=== PATIENT | female | born 1980 | race Hispanic/Latino ===

== ENCOUNTER 2018-06-27 17:11 | Day surgery (SDC) | payer MEDICAID, OTHER ==
[2018-06-27 20:03] LABS: Bilirubin Negative (Negative); Blood, Urine Negative (Negative); Clarity CLEAR (Clear); Glucose, Urine (Dipstick) Negative (Negative); Leukocyte Negative (Negative); Nitrite Negative (Negative); Protein, Urine (Dipstick) Negative (Neg-Trace); Specific Gravity, Urine 1.007 (1.002-1.036); Urobilinogen 0.2 mg/dL (0.2-1.0)
[2018-06-27 20:05] LABS: Urine Culture Reflex No No
[2018-06-27 20:06] LABS: Bacteria/HPF None Seen HPF (None Seen); Hyaline Casts/LPF 0-3 HYALINE CAST LPF (0-3 Hyaline); Pathc Cast-AUWi Flag 0.43 (0-2.49); RBC/HPF 0-3 HPF (0-3); Squamous Epithelial 0-3 HPF (0-3); WBC/HPF None Seen HPF (0-3)
--- NOTE | 2018-06-27 20:59 | ULT ---
OBSTETRICAL ULTRASOUND: 06/27/2018 HISTORY: female with vaginal bleeding. TECHNIQUE: Multiplanar aguiar-scale sonographic imaging of the gravid uterus is obtained. FINDINGS: Cervical length is 5.1 cm. The placenta is located posterior and to the right, with no evidence for previa or abruption appreciated. A single intrauterine gestation is present, demonstrating a vertex presentation and a heart rate of 139 beats per minute. Amniotic fluid index is 11.5 cm. anatomy is not assessed on this examination. IMPRESSION: Single intrauterine gestation, as detailed above. No sonographic evidence of placenta previa or abru ption. POS: [facility]
--- NOTE | 2018-06-27 22:39 | PRG ---
DATE OF SERVICE: 06/27/2018 PRIMARY OB: Dr. Servando Rod. CHIEF COMPLAINT: Vaginal bleeding. HISTORY OF PRESENT ILLNESS: The patient is a 37-year-old G4, P3 female, who is presenting with a 1-day history of vaginal bleeding. The patient noticed several times today while going to the bathroom and wiping that she had blood on her toilet paper. The patient reports that she has been wearing a pad, but has noticed very little bleeding onto the pad. The patient denies uterine contractions. She denies any trauma to her abdomen, recent falls, or intercourse. The patient denies any knowledge of abnormal placentation. The patient denies any recent illness, fever, falls, headache, chest pain, shortness of breath, nausea, vomiting, diarrhea, or constipation. She denies any new rashes, hip problems, knee problems, or muscle weakness. The patient reports that once we had our initial exam, she has not been having any more bleeding even upon going to the bathroom. The patient continues to deny any contractions or pain. PAST MEDICAL HISTORY: Negative. PAST SURGICAL HISTORY: Negative. SOCIAL HISTORY: Denies drug, alcohol, or tobacco use. ALLERGIES: NO KNOWN DRUG ALLERGIES. MEDICATIONS: vitamins. OB LABS: Unavailable at time of dictation. REVIEW OF SYSTEMS: Per HPI. PHYSICAL EXAMINATION: VITAL SIGNS: Blood pressure 125/78, heart rate of 85, respiratory rate 18, temperature 98.5. GENERAL: She appears to be in no acute distress. She is alert, oriented, cooperative, pleasant to interact with. HEAD: Normocephalic and atraumatic. LUNGS: Clear to auscultation bilaterally. HEART: Regular rate and rhythm. ABDOMEN: Soft, gravid, and nontender. EXTREMITIES: Nontender and nonedematous. : Her perineum is noted to have some bleeding at the introitus. On speculum exam, the patient was noted to have about 10 to 20 mL of clotted blood in her vaginal vault, which she used about five Greer swabs to remove. Cervix is visibly closed. There does not appear to be any other significant discharge. Cervix is possibly friable, but does not seem to be the source of her bleeding. On digital exam, cervix is closed and thick, though does seem to be tender. Pelvic floor muscles also are tight and tender. heart tracing was performed. The patient was noted to have a baseline in the 140s with moderate long-term variability, positive 15 x 15 accelerations, no decelerations. No contractions seen on the monitor. Urinalysis is negative for ketones, nitrites, leukocyte esterase, blood, and bacteria, which was collected by cath specimen VP3 significant for Darcie, negative for Trichomonas or Gardnerella. Ultrasound; ultrasound demonstrates cervical length of 5 cm. Placenta posterior to the right with no evidence of previa or abruption appreciated and fetus in vertex presentation. RENITA of 11.5. ASSESSMENT AND PLAN: The patient is a 37-year-old G4, P3 female with an intrauterine at 33 weeks with 1-day history of isolated bleeding that seems to have resolved. There is no evidence of abruption on ultrasound or by history as the patient has no abdominal pain or contractions. Fetus has category 1 tracing. On labs, the patient does have evidence of yeast infection. We have encouraged that she used [id number] medications such as Monistat as directed, should replete with later on Wednesday with Dr. Rod, which we have encouraged that she keep. The patient is being discharged to home with labor precautions. Job ID: [id number]
== END 2018-06-27 21:24 | disposition home or self-care (01) ==
LOC: L&D/OP 17:11
PROVIDERS: ATTEND Family Medicine
DX: O46.93 Antepartum hemorrhage, unspecified, third trimester (principal); Z3A.33 33 weeks gestation of pregnancy
CPT/HCPCS: 51701; 76815; 81001; 87480; 87510; 87660; 99285

== ENCOUNTER 2018-07-28 10:10 | Day surgery (SDC) | payer OTHER ==
[2018-07-28 12:05] LABS: #Eosinphils 0.6 thou/uL (0.0-0.7); #Lymphocytes 1.9 thou/uL (1.20-3.40); #Monocytes 0.4 thou/uL (0.11-0.59); #Neutrophils 7.6 thou/uL (1.40-6.50); %Basophils 0.1 % (0.0-1.0); %Eosinophils 5.4 % (0.0-10.0); %Lymphocytes 17.9 % (21.0-51.0); %Monocytes 3.9 % (0.0-10.0); %Neutrophils 72.7 % (42.0-75.0); Hemoglobin 12.4 g/dL (12.0-16.0); Mean Corpuscular HGB CONC 32.4 g/dL (32.0-36.0); Mean Corpuscular Hemoglobin 26.7 pg (27.0-31.0); Mean Corpuscular Volume 82.5 fL (78.0-98.0); Mean Platelet Volume 8.1 fL (7.4-10.4); Platelet Count 335 thou/uL (130-400); Red Blood Cell (RBC) Count 4.62 mill/uL (4.20-5.40); White Blood Cell (WBC) Count 10.4 thou/uL (4.8-10.8)
--- NOTE | 2018-07-28 12:09 | ULT ---
ULTRASOUND BIOPHYSICAL PROFILE: HISTORY: Increased blood pressure. COMPARISON: None. FINDINGS: The biophysical profile score is 8/8. The position is vertex. Amniotic fluid index measures 1 8.2 cm. The placenta is posterior and to the right. Heart rate documented at 135 b.p.m. Clinical age of 37 weeks 3 days. IMPRESSION: Biophysical profile score of 8/8. The results were given to the nurse at the time of the exam by the technologist. CODE STEPHANIE POS: [facility]
[2018-07-28 12:18] LABS: ALT (SGPT) 12 U/L (8-55); AST (SGOT) 17 U/L (5-34); Albumin 3.4 g/dL (3.5-5.0); Alkaline Phosphatase 328 U/L (40-150); Anion Gap 13 mmol/L (10-20); BUN (Urea Nitrogen) 5 mg/dL (7.0-18.7); Bilirubin, Total 0.3 mg/dL (0.2-1.2); Calc. Creatinine Clearance 152 mL/min (70-130); Calcium 9.4 mg/dL (7.8-10.44); Carbon Dioxide 20 mmol/L (22-29); Chloride 108 mmol/L (98-107); Estimated GFR-MDRD Greater than 90; Globulin 3.7 g/dL (2.4-3.5); Glucose 76 mg/dL (70-105); Potassium 3.9 mmol/L (3.5-5.1); Protein, Total 7.1 g/dL (6.0-8.3); Sodium 137 mmol/L (136-145); Uric Acid 4.4 mg/dL (2.6-6.0)
== END 2018-07-28 13:50 | disposition home or self-care (01) ==
LOC: L&D/OP 10:10
PROVIDERS: ATTEND Family Medicine
DX: O13.3 Gestational [pregnancy-induced] hypertension without significant proteinuria, third trimester (principal); Z3A.37 37 weeks gestation of pregnancy; Z79.899 Other long term (current) drug therapy
CPT/HCPCS: 36415; 76819; 80053; 82570; 84156; 84550; 85025; 99284

== ENCOUNTER 2018-08-04 10:17 | Inpatient (IN) | payer MEDICAID, OTHER, SELFPAY ==
[2018-08-04 11:12] VITALS: BMI 35.2
[2018-08-04 11:41] LABS: #Eosinphils 0.2 thou/uL (0.0-0.7); #Lymphocytes 1.6 thou/uL (1.20-3.40); #Monocytes 0.5 thou/uL (0.11-0.59); #Neutrophils 7.7 thou/uL (1.40-6.50); %Basophils 0.2 % (0.0-1.0); %Eosinophils 1.6 % (0.0-10.0); %Lymphocytes 16.2 % (21.0-51.0); Hemoglobin 12.4 g/dL (12.0-16.0); Mean Corpuscular HGB CONC 32.2 g/dL (32.0-36.0); Mean Corpuscular Hemoglobin 25.8 pg (27.0-31.0); Mean Corpuscular Volume 80.1 fL (78.0-98.0); Mean Platelet Volume 8.1 fL (7.4-10.4); Platelet Count 330 thou/uL (130-400); RBC Distribution Width 16.3 % (11.5-14.5); Red Blood Cell (RBC) Count 4.81 mill/uL (4.20-5.40); White Blood Cell (WBC) Count 10.1 thou/uL (4.8-10.8)
[2018-08-04 12:01] LABS: ALT (SGPT) 16 U/L (8-55); AST (SGOT) 18 U/L (5-34); Albumin 3.4 g/dL (3.5-5.0); Alkaline Phosphatase 347 U/L (40-150); Anion Gap 15 mmol/L (10-20); BUN (Urea Nitrogen) 6 mg/dL (7.0-18.7); Bilirubin, Total 0.3 mg/dL (0.2-1.2); Calc. Creatinine Clearance 157 mL/min (70-130); Calcium 9.4 mg/dL (7.8-10.44); Carbon Dioxide 18 mmol/L (22-29); Chloride 108 mmol/L (98-107); Estimated GFR-MDRD Greater than 90; Globulin 3.2 g/dL (2.4-3.5); Glucose 78 mg/dL (70-105); Potassium 4.2 mmol/L (3.5-5.1); Protein, Total 6.6 g/dL (6.0-8.3); Sodium 137 mmol/L (136-145)
[2018-08-04] MEDS ORDERED: Ondansetron PF 4 MG/2 ML Vial IVP PRN (12:40)
[2018-08-04] MEDS ORDERED: Misoprostol 200 MCG TAB PR PRN (12:40)
[2018-08-04] MEDS ORDERED: HYDROcodone/Acetaminophen 5/325 mg Tablet PO PRN (12:40)
[2018-08-04] MEDS ORDERED: Lidocaine 1% (PF) 30 ML VIAL SC PRN (12:40)
[2018-08-04] MEDS ORDERED: Ibuprofen 800 MG TAB PO PRN (12:40)
[2018-08-04] MEDS ORDERED: NS / Oxytocin 40 units/1000ml 1,000 ML IV PRN (12:40)
[2018-08-04] MEDS ORDERED: Butorphanol Tartrate 1 MG/ML VIAL SLOW IVP PRN (12:40)
[2018-08-04] MEDS ORDERED: Carboprost 250 MCG/ML AMP IM PRN (12:40)
[2018-08-04] MEDS ORDERED: Diphenoxylate HCl/Atropine Tablet PO PRN (12:40)
[2018-08-04] MEDS ORDERED: Lactated Ringer's 1,000 ML IV SCH (12:45)
--- NOTE | 2018-08-04 13:45 | ULT ---
BIOPHYSICAL PROFILE: History: Pre-eclampsia. FINDINGS: Real-time imaging of the pelvis shows a single viable intrauterine in cephalic presentation . heart rate is 131 beats/minute. Placenta is more posterior and fundal in location. The biophysical profile score shows tone 2, breathing 2, movements 2, amniotic fluid 2. IMPRESSION: biophysical profile score of 8/8. POS: [facility]
[2018-08-04 19:24] LABS: HBSAg Index 0.23 S/CO (0-0.99); Hep B Surf Ag Non-Reactive S/CO (NonReactive)
[2018-08-04 19:25] LABS: Syphilis Antibody Nonreactive (Nonreactive); Syphilis Antibody Index 0.02 S/CO (<1.00 Non-Reactive)
[2018-08-04] MEDS ORDERED: Penicillin G Potassium 5 MILL.UNITS in Sodium Chloride 0.9% 100 ML IVPB SCH (22:00)
[2018-08-05] MEDS ORDERED: hydrALAZINE 20 MG/ML VIAL ONE (00:48)
[2018-08-05] MEDS ORDERED: hydrALAZINE 20 MG/ML VIAL SLOW IVP PRN ×2 (00:56→00:57)
[2018-08-05] MEDS: Misoprostol 100 MCG TAB PO SCH ×2 (01:20→06:12)
[2018-08-05] MEDS ORDERED: Penicillin G 2.5 MILL.units 2.5 MILL.UNITS in Premix Bag 1 BAG IVPB SCH (02:00)
[2018-08-05] MEDS ORDERED: NS / Oxytocin 40 units/1000ml 1,000 ML IV SCH (02:13)
[2018-08-05] MEDS ORDERED: Lanolin Ointment 7 GM TUBE TOP PRN (02:13)
[2018-08-05] MEDS ORDERED: Bisacodyl 10 MG SUPP PR PRN (02:13)
[2018-08-05] MEDS ORDERED: Milk Of Magnesia 30 ML UDCUP PO PRN (02:13)
[2018-08-05] MEDS ORDERED: Benzocaine/Menthol 20-0.5% 60 ML CAN TOP PRN (02:13)
[2018-08-05] MEDS ORDERED: NS w/ Oxytocin 10 units 500 ML IV SCH ×2 (07:00)
[2018-08-05 07:18] LABS: Hemoglobin 12.1 g/dL (12.0-16.0); Mean Corpuscular HGB CONC 32.2 g/dL (32.0-36.0); Mean Corpuscular Hemoglobin 26.7 pg (27.0-31.0); Mean Corpuscular Volume 82.9 fL (78.0-98.0); Mean Platelet Volume 8.2 fL (7.4-10.4); Platelet Count 300 thou/uL (130-400); RBC Distribution Width 16.3 % (11.5-14.5); Red Blood Cell (RBC) Count 4.52 mill/uL (4.20-5.40); White Blood Cell (WBC) Count 13.8 thou/uL (4.8-10.8)
--- NOTE | 2018-08-05 07:23 | DN ---
DATE OF PROCEDURE: 08/05/2018 The patient delivered a female on 08/05/2018, at 0054 hours by a term uncomplicated spontaneous vaginal delivery at 38 weeks and 4 days gestation. Apgars were 8 and 9. Weight is unavailable at the time of dictation. Placenta delivered spontaneously and was followed by Pitocin infusion. Estimated blood loss is 350 mL. Quantitative blood loss pending. Dr. Liu is the delivering physician. There were no lacerations. Mother and baby are stable in the room in the immediate . Counts were correct and there were no complications. Job ID: [id number]
[2018-08-05] MEDS: Docusate Calcium (SURFAK) 240 MG CAP PO SCH ×2 (08:35→21:01)
[2018-08-05] MEDS: Ibuprofen 800 MG TAB PO SCH ×2 (08:35→16:38)
[2018-08-05] MEDS: Ferrous Sulfate 325 MG TAB PO SCH ×2 (08:35→17:17)
[2018-08-05] MEDS: Prenatal Vitamin 1 TAB PO SCH (08:35)
[2018-08-05] MEDS ORDERED: Adacel (T-DAP) 0.5 ML SYRINGE IM ONE (09:00)
[2018-08-06] MEDS: Ferrous Sulfate 325 MG TAB PO SCH ×2 (08:23→16:03)
[2018-08-06] MEDS: Docusate Calcium (SURFAK) 240 MG CAP PO SCH ×2 (08:42→21:16)
[2018-08-06] MEDS: Ibuprofen 800 MG TAB PO SCH ×4 (08:42→23:46)
[2018-08-06] MEDS: Prenatal Vitamin 1 TAB PO SCH (08:42)
[2018-08-07] MEDS: Simethicone Chewable 80 MG TAB PO PRN ×2 (00:08→06:27)
[2018-08-07] MEDS: Ferrous Sulfate 325 MG TAB PO SCH (08:00)
[2018-08-07] MEDS: Docusate Calcium (SURFAK) 240 MG CAP PO SCH (08:33)
[2018-08-07] MEDS: Prenatal Vitamin 1 TAB PO SCH (08:33)
[2018-08-07] MEDS: Ibuprofen 800 MG TAB PO SCH (08:33)
[2018-08-07 09:05] VITALS: TEMP 97.8
[2018-08-07 10:53] VITALS: BP 136/81
== END 2018-08-07 16:15 | disposition home or self-care (01) | DRG 807 ==
LOC: L&D/OP 10:17 → L&D 17:47 → 3SW 08-05 03:47
PROVIDERS: ADMIT Family Medicine; ATTEND Family Medicine
PROC: 10E0XZZ Delivery of Products of Conception, External Approach (ICD-10-PCS; principal; 2018-08-05)
DX: O13.4 Gestational [pregnancy-induced] hypertension without significant proteinuria, complicating childbirth (principal); Z37.0 Single live birth; O99.824 Streptococcus B carrier state complicating childbirth; O69.1XX0 Labor and delivery complicated by cord around neck, with compression, not applicable or unspecified; Z3A.38 38 weeks gestation of pregnancy
CPT/HCPCS: 36415; 76819; 80053; 81003; 85025; 85027; 86780; 86850; 86900; 86901; 87340; 90715; 99285; J0360; J2001; J2540; J7050